=== PATIENT | male | born 1990 | race Two or more races ===

== ENCOUNTER 2021-09-02 11:55 | Emergency (ER) | payer MEDICAID ==
[~2021-09-02] VITALS: Ht 188 cm; Wt 81.6 kg
[2021-09-02 12:01] VITALS: BP 122/73
[2021-09-02] MEDS ORDERED: LIDOCAINE 1% HCL (LOCAL ANESTH.) INJ 20ML MDV IJ ONE (12:30)
== END 2021-09-02 12:46 | disposition left against medical advice (07) ==
LOC: ER 11:55
DX: L02.31 Cutaneous abscess of buttock (principal); F17.210 Nicotine dependence, cigarettes, uncomplicated
CPT/HCPCS: 99281; J2001

== ENCOUNTER 2022-02-15 17:22 | Emergency (ER) | payer MEDICAID ==
[~2022-02-15] VITALS: Ht 190.5 cm; Wt 86.2 kg
[2022-02-15 19:21] VITALS: BP 121/80
[2022-02-15] MEDS ORDERED: CLINDAMYCIN 600 MG/4 ML VL IM ONE (19:45)
== END 2022-02-15 20:23 | disposition home or self-care (01) ==
LOC: ER 17:22
DX: L02.512 Cutaneous abscess of left hand (principal); L03.114 Cellulitis of left upper limb; B00.9 Herpesviral infection, unspecified; F17.210 Nicotine dependence, cigarettes, uncomplicated
CPT/HCPCS: 96372